=== PATIENT | female | born 1950 | race Caucasian/White ===

== ENCOUNTER 2024-07-10 05:42 | Day surgery (SDC) | payer OTHER ==
[2024-07-10] VITALS (11 sets, daily range): BP systolic 113–145; BP diastolic 51–67; PULSE 56–73; RESP 14–18; TEMP 97.4–97.7
[~2024-07-10] VITALS: Ht 165.1 cm; Wt 68.5 kg
[2024-07-10] MEDS: 0.9%NACL 1000ML 1,000 ML IV ONE (09:19)
[2024-07-10] MEDS ORDERED: FENTanyl CITRate PF 50 MCG/1 ML 2ML VIAL ONE (09:35)
[2024-07-10] MEDS ORDERED: proPOFol 10 MG/ML 20ML VIAL IV ONE ×2 (09:36)
== END 2024-07-10 10:57 | disposition home or self-care (01) ==
LOC: ENDO 05:42 → DAH 05:42 → ENDO 10:57
PROVIDERS: ATTEND Surgery
DX: R13.10 Dysphagia, unspecified (principal); K21.00 Gastro-esophageal reflux disease with esophagitis, without bleeding; K31.89 Other diseases of stomach and duodenum; I10 Essential (primary) hypertension; E78.5 Hyperlipidemia, unspecified; Z79.899 Other long term (current) drug therapy
CPT/HCPCS: 43239; J3010; J7030 ×2; J2704 ×2; A4620; A4215; A4223; A7002; A4222; A4221; A4663; A4606; J3490